=== PATIENT | female | born 1955 | race Hispanic/Latino ===

== ENCOUNTER 2017-05-09 11:31 | Day surgery (SDC) | payer OTHER ==
[2016-08-30 08:59] VITALS: BMI 25.1
--- NOTE | 2017-05-09 12:45 | CP.SDSHP ---
Same Day Surgery H & P - History Proposed Procedure: Ultrasound guided thyroid biopsy - Previous Medical/Surgical History Pulmonary: Smoking (5 cigarettes a day for 25 years) Misc: Other (Anxiety,palpitations.) Pain: 0. No Pain Comments: "Enlarged lump growing next to thyroid" according to patient. Previous Surgical History: D & C. L Lumpectomy. Cystoscopy. EGD/Colonoscopy. Ovarian cystectomy. Laminectomy - Allergies Allergies: Allergies No Known Allergies Allergy (Verified 06/04/12 08:24) - Physical Exam General Appearance: Well nourished female Vital Signs: Vital Signs 05/09/17 11:56 Temperature 97.9 F Pulse Rate 52 L Respiratory 20 Rate Blood Pressure 150/78 O2 Sat by Pulse 97 Oximetry Mental Status: Alert & Oriented x3 Neuro: WNL Heart: WNL Lungs: WNL - {Optional Preform as Required} Abdomen: WNL Other Pertinent Findings: Soft cystic swelling about 1" diameter noted in the L lobe of the thyroid gland. - Impression Impression: Thyroid nodule - Date & Time Date: 05/09/17 Time: 12:47 Short Stay Discharge - Short Stay Discharge Admitting Diagnosis/Reason for Visit: THYROID BX E04.9 Disposition: HOME/ ROUTINE Referrals: Gill NI,Sadi De La Paz MD [Primary Care Provider] -
[2017-05-09] MEDS ORDERED: Midazolam 2 MG/2 ML VIAL ONE (14:30)
[2017-05-09] MEDS ORDERED: Oxycodone/Acetaminophen 5/325 mg Tab PO PRN (15:36)
[2017-05-09] MEDS ORDERED: Sodium Chloride 0.45% 1,000 ML IV SCH (15:45)
[2017-05-09 16:22] VITALS: BP 128/64; PULSE 71; RESP 18; TEMP 98; O2SAT 96
--- NOTE | 2017-05-09 18:03 | US ---
PROCEDURE: Ultrasound-guided left thyroid fine needle aspiration biopsy. CLINICAL HISTORY: Solitary complex left thyroid nodule. Evaluate for malignancy. PHYSICIAN(S): James Reyna M.D. TECHNIQUE: The relative risks and indications for the procedure were explained to the patient and consent obtained. The patient was placed supine on the stretcher with the neck extended and preliminary sonography of the thyroid performed. This reveal complex 2 x 3 cm 8 nodule in the mid left thyroid.. The remainder of the thyroid parenchyma is homogeneous in echotexture. The neck was prepped and draped in the usual sterile fashion. Conscious sedation and monitoring were provided throughout the procedure by a nurse. 1% Xylocaine was used to anesthetize the skin and soft tissues at the access site. Initially, 7 cc of bloody fluid was aspirated from the cyst under ultrasound guidance. Next, Three passes with a 22-gauge needle were performed under ultrasound guidance for fine needle aspiration of the residual nodule. The slides were reviewed by pathology and deemed adequate. The patient tolerated the procedure well. IMPRESSION: 1. Ultrasound guided fine needle aspiration of a 2 x 3 cm complex cysticnodule in the left thyroid.
== END 2017-05-09 17:04 | disposition home or self-care (01) ==
LOC: SDS 11:31
PROVIDERS: ATTEND Radiology Vascular & Interventional Radiology
DX: E04.1 Nontoxic single thyroid nodule (principal); F41.9 Anxiety disorder, unspecified
CPT/HCPCS: 10022; 88173; 88305; J2250; J2405; J3010; J7030

== ENCOUNTER 2018-05-08 06:38 | Day surgery (SDC) | payer OTHER ==
[2018-05-08 07:50] VITALS: BMI 25.0
[2018-05-08] MEDS ORDERED: Propofol 10 mg/ml Inj (20 ML) ONE (08:51)
[2018-05-08] MEDS ORDERED: Midazolam 2 MG/2 ML VIAL ONE (08:52)
[2018-05-08] MEDS ORDERED: Lidocaine PF 2% (5 ml) Inj (For Cardiac Arrhy) ONE (08:52)
[2018-05-08] MEDS ORDERED: Rocuronium 10 mg/ml (5 ml) ONE (08:54)
[2018-05-08] MEDS ORDERED: Glycopyrrolate 0.2 mg/ml (2ml vial) ONE (09:53)
[2018-05-08] MEDS ORDERED: Bupivacaine 0.5% Inj(30mL) ONE (10:18)
[2018-05-08] MEDS ORDERED: HYDROmorphone 0.5 mg/0.5 ml ISec IVP PRN (10:40)
--- NOTE | 2018-05-08 10:41 | PCM.SURG1 ---
Surgeon's Initial Post Op Note - Surgeon's Notes Surgeon: Dr. To Order Booker: Mahendra PGY2 Type of Anesthesia: General Endo Anesthesia Administered By: Dr. Priest Pre-Operative Diagnosis: Right ovarian cyst, Cervical stenosis Operative Findings: Right ovarian cyst, Cervical stenosis, Uterine fibroid (see operative dictation) Post-Operative Diagnosis: Right ovarian cyst, Cervical stenosis Operation Performed: Laparoscopic Bilateral Salpingoophrectomy, Hysteroscopy Specimen/Specimens Removed: Right ovary, Left ovary, bilateral fallopian tubes Estimated Blood Loss: EBL {In ML}: 5 Blood Products Given: N/A Drains Used: No Drains Post-Op Condition: Good Date of Surgery/Procedure: 05/08/18 Time of Surgery/Procedure: 10:41
[2018-05-08] MEDS ORDERED: Oxycodone/Acetaminophen 5/325 mg Tab PO PRN (10:42)
[2018-05-08] MEDS ORDERED: Lactated Ringer's 1,000 ML IV SCH (10:45)
[2018-05-08 10:58] VITALS: TEMP 98; O2SAT 96
[2018-05-08 11:50] VITALS: RESP 18
[2018-05-08 13:48] VITALS: BP 106/51; PULSE 88
--- NOTE | 2018-05-08 19:15 | OP ---
Copied To: Malik To MD Attending MD: Malik To MD PROCEDURE DATE: 05/08/2018 PREOPERATIVE DIAGNOSES: Right ovarian mass and cervical stenosis. POSTOPERATIVE DIAGNOSES: Right ovarian cyst, fibroid uterus, and cervical stenosis. PROCEDURES PERFORMED: Hysteroscopy, dilatation of cervix, laparoscopy, right salpingo-oophorectomy, and a left oophorectomy. SURGEON: Malik To MD ADMIN ASST SURGEON: Angel Mccray DO ANESTHESIA: General endotracheal. ESTIMATED BLOOD LOSS: Minimal. COMPLICATIONS: No complications in the procedure. DESCRIPTION OF PROCEDURE: Procedure went as follows. After a long discussion was held with the patient and her , all consents were signed, the patient was brought into the operating room. General endotracheal anesthesia was induced. The patient was prepped and draped in usual sterile fashion. Examination under anesthesia revealed the uterus that was small top normal size, right adnexa was felt to be negative, left adnexa was felt to be negative. Weighted speculum was inserted into the vaginal vault. Anterior lip of the cervix was visualized and grasped with a single-tooth tenaculum. It was noted the patient had cervical stenosis, small progressive dilatation was made in through the cervical os. Once it was opened, small gastric fluid came through the os. An operative scope was inserted into the uterine cavity and visualization of the cavity revealed both ostia to be normal, no polyps or masses protruding into the area and the lining was atrophic. Bladder was then catheterized, 300 mL obtained. Attention was turned to the abdomen. Subumbilical incision was made and it was brought down to the fascia. The fascia was opened and the rectus muscles split. The peritoneum was visualized, grasped with 2 hemostats, opened, and a blunt port trocar was inserted. Visualization of the pelvic cavity was performed. The uterus itself was found to be normal in size and texture. The patient had a left serosal fibroid measuring approximately 1 x 1 cm in size that was probably the cystic mass that was visualized on the patient's CAT scan. The left ovary itself was found to be normal and atrophic. The patient had a previous left salpingectomy. Visualization of the patient's right adnexal area revealed the salpinges to be normal. The right ovary itself was found to be cystic measuring approximately 2 x 3 cm in size. Visualization of the appendix revealed no abnormalities. Visualization of the upper abdominal cavity revealed no abnormalities. Bowel and omentum were found to be normal. With the patient placed in Trendelenburg position, two small 5-mm ports were made, one in the suprapubic area and one in the area of McBurney point. Through that, 5-mm ports and trocars were inserted. Under direct visualization, first a right salpingo-oophorectomy was performed with LigaSure device in the standard fashion and hemostasis was excellent. Next, left oophorectomy was performed also with the LigaSure device and hemostasis was excellent. Both specimens were removed through the umbilical site without difficulty. The fibroid itself was found to be nonsymptomatic and it was left in place. The pelvis was irrigated and suctioned dry. Hemostasis was excellent throughout this entire time. There was no bleeding noted. The pneumoperitoneum was relieved. 0 Vicryl was used to close the fascial incision, 4-0 Monocryl was used to close the skin incision. Marcaine was inserted into the incision sites and incisions were closed with Dermabond. The patient tolerated the procedure well, was gently awakened, and sent to the recovery room in stable condition. Malik To MD
== END 2018-05-08 14:05 | disposition home or self-care (01) ==
LOC: SDS 06:38
PROVIDERS: ATTEND Obstetrics & Gynecology Gynecology
DX: N83.201 Unspecified ovarian cyst, right side (principal); N83.202 Unspecified ovarian cyst, left side; D25.9 Leiomyoma of uterus, unspecified; N88.2 Stricture and stenosis of cervix uteri
CPT/HCPCS: 58558; 58661; 88305; J1170; J1885; J2250; J2704; J2765; J3010; J7120 ×2